=== PATIENT | male | born 1995 | race Asian ===

== ENCOUNTER 2022-09-21 20:01 | Emergency (ER) | payer OTHER ==
[~2022-09-21] VITALS: Ht 165.1 cm; Wt 79.0 kg
[2022-09-21] MEDS ORDERED: CARB100C9 PO (20:24)
[2022-09-21] MEDS ORDERED: ATOR10TA PO (20:24)
[2022-09-21] MEDS ORDERED: CHOL400T33 PO (20:24)
[2022-09-21] MEDS ORDERED: LIDOCAINE 1% 20 ML VIAL SQ ONE (21:00)
[2022-09-21] MEDS ORDERED: LIDOCAINE 1% 10 ML VIAL SQ ONE (21:15)
[2022-09-21] MEDS ORDERED: PERTUSS(ACELL),DIPH,TET VAC/PF 0.5 ML SYRINGE IM. ONE (21:30)
[2022-09-21 21:51] VITALS: BP 129/88
== END 2022-09-21 21:51 | disposition home or self-care (01) ==
LOC: EMS 20:02
DX: S01.81XA Laceration without foreign body of other part of head, initial encounter (principal); W25.XXXA Contact with sharp glass, initial encounter; Y93.55 Activity, bike riding; Y92.89 Other specified places as the place of occurrence of the external cause; Y99.8 Other external cause status
CPT/HCPCS: 99283; 90715; 90471; 12013; J3490

== ENCOUNTER 2022-10-01 09:30 | Emergency (ER) | payer OTHER ==
[~2022-10-01] VITALS: Ht 165.1 cm; Wt 72.7 kg
[~2022-10-01 09:30] MED LIST: ATOR10TA PO; CARB100C9 PO; CHOL400T33 PO
[2022-10-01 09:39] VITALS: BP 129/74
== END 2022-10-01 11:00 | disposition home or self-care (01) ==
LOC: EMS 09:31
DX: S01.111D Laceration without foreign body of right eyelid and periocular area, subsequent encounter (principal); X58.XXXD Exposure to other specified factors, subsequent encounter
CPT/HCPCS: 99281; Z7502

== ENCOUNTER 2024-02-21 00:42 | Emergency (ER) | payer OTHER ==
[~2024-02-21] VITALS: Ht 177.8 cm; Wt 90.0 kg
[2024-02-21 00:44] VITALS: BP 120/80; PULSE 64; RESP 16; TEMP 98.2
[2024-02-21] MEDS: BACITRACIN 0.9 GM PACKET OINTMENT TP ONE (02:35)
[2024-02-21] MEDS: ACETAMINOPHEN/CODEINE 300-30 MG TABLET PO ONE (02:35)
[2024-02-21] MEDS: IBUPROFEN 600 MG TABLET PO ONE (02:36)
[2024-02-21] MEDS ORDERED: HYDR-4723 PO (02:45)
[2024-02-21] MEDS ORDERED: IBUP-1554 PO (02:45)
== END 2024-02-21 02:57 | disposition home or self-care (01) ==
LOC: EMS 00:43
DX: S80.12XA Contusion of left lower leg, initial encounter (principal); V29.888A Rider (driver) (passenger) of other motorcycle injured in other specified transport accidents, initial encounter; Y93.I9 Activity, other involving external motion; Y92.488 Other paved roadways as the place of occurrence of the external cause; Y99.8 Other external cause status
CPT/HCPCS: 99284; 73590-TC; Z7502; Z7610